=== PATIENT | female | born 1980 | race Caucasian/White ===

== ENCOUNTER → 2018-10-15 | Outpatient (CLI) | payer MEDICAID ==
[~2018-10-15] MED LIST: FUROSEMIDE 20 MG/2 ML ONE
== END | disposition home or self-care (01) ==
LOC: PETCFH 07:09
PROVIDERS: ATTEND Nurse Practitioner Family
DX: N20.0 Calculus of kidney (principal)
CPT/HCPCS: 78708; A9562; J1940